=== PATIENT | female | born 1950 | race African-American/Black ===

== ENCOUNTER 2019-05-02 15:54 | Emergency (ER) | payer MEDICARE, OTHER ==
[~2019-05-02] VITALS: Ht 157.5 cm; Wt 73.9 kg
--- NOTE | 2019-05-02 16:00 | NUR ---
ED Nurse Note: Patient brought in by ambulance from [facility] from home, patiet reports generalized weakness and feeling lethargic 1 hour prior to arrival. patient is alert awake x4 ambulatory steady gait, without assistance, breathing unlabored and even, speaking in full sentences.
[2019-05-02] MEDS ORDERED: HUMALOG100 UNIT/4 SUBQ (16:03)
[2019-05-02] MEDS ORDERED: GLIPIZIDE ER5 MG PO (16:03)
[2019-05-02] MEDS ORDERED: POTASSIUM CHLOR8 ME2 PO (16:03)
[2019-05-02] MEDS ORDERED: CARVEDILOL3.125 MG ORAL (16:03)
[2019-05-02] MEDS ORDERED: LANTUS SOL100 UNIT/1 SUBQ (16:03)
[2019-05-02] MEDS ORDERED: ATORVASTATIN CA40 MG ORAL (16:03)
--- NOTE | 2019-05-02 16:10 | NUR ---
ED Nurse Note: socks provided for the patient as requested. patient is a/o x4 ambulatory from home, patient reports "I cannot put my socks on." RN put socks on for the patient.
--- NOTE | 2019-05-02 16:12 | Emergency Room Report ---
History of Present Illness General Chief Complaint: Generalized Weakness Source: Patient, EMS Present Illness HPI 68-year-old female history of CABG 2016, hypertension, hyperlipidemia presents with presyncopal-like symptoms, and felt lightheaded when she stood up suddenly lasting 5 minutes, alleviated when she was lying down patient denies any chest pain shortness of breath no nausea no vomiting, no abdominal pain no dysuria patient presents for evaluation. Allergies: Coded Allergies: No Known Allergies (Unverified , 05/02/19) Patient History Past Medical History: see triage record Reviewed Nursing Documentation: PMH: Agreed; PSxH: Agreed Nursing Documentation-PMH Hx Cardiac Problems: Yes Hx Hypertension: Yes - HYPERLIPIDEMIA Hx Diabetes: Yes Review of Systems All Other Systems: negative except mentioned in HPI Physical Exam Vital Signs Date Time Temp Pulse Resp B/P (MAP) Pulse Ox O2 Delivery O2 Flow Rate FiO2 05/02/19 15:50 99.0 80 19 152/78 (102) 100 Room Air Sp02 EP Interpretation: reviewed, normal General Appearance: well appearing, no apparent distress, alert Head: normocephalic, atraumatic Eyes: bilateral eye PERRL, bilateral eye EOMI ENT: uvula midline, moist mucus membranes Neck: supple, thyroid normal, supple/symm/no masses Respiratory: lungs clear, no respiratory distress, no retraction, no accessory muscle use Cardiovascular #1: normal peripheral pulses, regular rate, rhythm, no edema, no gallop, no murmur Gastrointestinal: non tender, soft, no guarding, no rebound Musculoskeletal: normal inspection Neurologic: alert, oriented x3 Psychiatric: mood/affect normal Skin: no rash, warm/dry Medical Decision Making Diagnostic Impression: Primary Impression: Episode of generalized weakness Additional Impression: UTI (urinary tract infection) Qualified Codes: N30.00 - Acute cystitis without hematuria ER Course 68-year-old female multiple comorbidities presents with presyncopal-like symptoms, controlled diagnosis includes ACS, syncope, UTI Patient felt better with fluid ministration, patient instantly found to have a UTI, patient felt better with antibiotic administration Disposition home with return precautions, counseled patient to follow-up with rheumatology and cardiology Will provide patient with a prescription abx Laboratory Tests Test 05/02/19 16:10 05/02/19 16:19 White Blood Count 7.0 K/UL (4.8-10.8) Red Blood Count 3.72 M/UL (4.20-5.40) L Hemoglobin 11.8 G/DL (12.0-16.0) L Hematocrit 34.3 % (37.0-47.0) L Mean Corpuscular Volume 92 FL (80-99) Mean Corpuscular Hemoglobin 31.8 PG (27.0-31.0) H Mean Corpuscular Hemoglobin Concent 34.5 G/DL (32.0-36.0) Red Cell Distribution Width 10.4 % (11.6-14.8) L Platelet Count 211 K/UL (150-450) Mean Platelet Volume 8.6 FL (6.5-10.1) Neutrophils (%) (Auto) 66.0 % (45.0-75.0) Lymphocytes (%) (Auto) 22.3 % (20.0-45.0) Monocytes (%) (Auto) 8.1 % (1.0-10.0) Eosinophils (%) (Auto) 2.5 % (0.0-3.0) Basophils (%) (Auto) 1.1 % (0.0-2.0) Erythrocyte Sedimentation Rate 105 MM/HR (0-30) H Prothrombin Time 10.4 SEC (9.30-11.50) Prothrombin Time INR 1.0 (0.9-1.1) PTT 30 SEC (23-33) Sodium Level 141 MMOL/L (136-145) Potassium Level 3.9 MMOL/L (3.5-5.1) Chloride Level 104 MMOL/L (98-107) Carbon Dioxide Level 30 MMOL/L (21-32) Anion Gap 7 mmol/L (5-15) Blood Urea Nitrogen 34 mg/dL (7-18) H Creatinine 1.6 MG/DL (0.55-1.30) H Estimate Glomerular Filtration Rate 31.8 mL/min (>60) Glucose Level 287 MG/DL (74-106) H Calcium Level 9.7 MG/DL (8.5-10.1) Total Bilirubin 0.4 MG/DL (0.2-1.0) Aspartate Amino Transferase (AST) 16 U/L (15-37) Alanine Aminotransferase (ALT) 34 U/L (12-78) Alkaline Phosphatase 117 U/L (46-116) H Total Creatine Kinase 93 U/L (26-308) Creatine Kinase MB 0.8 NG/ML (0.0-3.6) Creatine Kinase MB Relative Index 0.8 Troponin I 0.000 ng/mL (0.000-0.056) C-Reactive Protein, Quantitative 2.5 mg/dL (0.00-0.90) H Pro-B-Type Natriuretic Peptide 532 pg/mL (0-125) H Total Protein 7.7 G/DL (6.4-8.2) Albumin 3.2 G/DL (3.4-5.0) L Globulin 4.5 g/dL Albumin/Globulin Ratio 0.7 (1.0-2.7) L Triglycerides Level 166 MG/DL (30-150) H Cholesterol Level 199 MG/DL (< 200) LDL Cholesterol 127 mg/dL (<100) H HDL Cholesterol 43 MG/DL (40-60) Cholesterol/HDL Ratio 4.6 (3.3-4.4) H Thyroid Stimulating Hormone (TSH) 0.942 uiU/mL (0.358-3.740) Free Thyroxine 0.92 NG/DL (0.76-1.46) Free Triiodothyronine 1.6 pg/mL (2.3-4.2) L Urine Color Pale yellow Urine Appearance Slightly cloudy Urine pH 5 (4.5-8.0) Urine Specific [place] 1.020 (1.005-1.035) Urine Protein 3+ (NEGATIVE) H Urine Glucose (UA) Negative (NEGATIVE) Urine Ketones Negative (NEGATIVE) Urine Blood 1+ (NEGATIVE) H Urine Nitrite Negative (NEGATIVE) Urine Bilirubin Negative (NEGATIVE) Urine Urobilinogen Normal MG/DL (0.0-1.0) Urine Leukocyte Esterase 2+ (NEGATIVE) H Urine RBC 5-10 /HPF (0 - 2) H Urine WBC Tntc /HPF (0 - 2) H Urine Squamous Epithelial Cells Moderate /LPF (NONE/OCC) H Urine Bacteria Many /HPF (NONE) H EKG Diagnostic Results EKG Time: 16:26 EP Interpretation: Paced rhythm, rate 68, QTc 463, no acute ST elevations, left axis deviation Rhythm Strip Diag. Results Rhythm Strip Time: 16:36 EP Interpretation: yes Rate: 67 Rhythm: other - Paced rhythm Chest X-Ray Diagnostic Results Chest X-Ray Diagnostic Results : Chest X-Ray Ordered: Yes # of Views/Limited/Complete: 1 View Indication: Other - presyncope EP Interpretation: Yes Interpretation: no consolidation, no effusion, no pneumothorax, no acute cardiopulmonary disease Impression: No acute disease Electronically Signed by: Ramon Fernandez MD Last Vital Signs Date Time Temp Pulse Resp B/P (MAP) Pulse Ox O2 Delivery O2 Flow Rate FiO2 05/02/19 15:50 99.0 80 19 152/78 (102) 100 Room Air Disposition: HOME, SELF-CARE Condition: Stable Scripts Cephalexin* (CEPHALEXIN*) 500 Mg Tablet 500 MG ORAL EVERY 6 HOURS, #28 CAP Prov: Ramon Fernandez MD 05/02/[address]: [facility] Patient Instructions: Near-Syncope, [id number], Urinary Tract Infection, Easy -to-Read Additional Instructions: The patient was provided with discharge instructions, notified to follow-up with a primary care doctor and or specialist in the next 24-48 hours, and to return to the ED if they have worsening of their symptoms. Please note that this report is being documented using [employer] technology. This can lead to erroneous entry secondary to incorrect interpretation by the dictating instrument. PLEASE FOLLOW-UP WITH RHEUMATOLOGY, AND PCP IN 24-48 HOURS. Ramon Fernandez MD May 02, 2019 16:12
[2019-05-02 16:34] LABS: APPEARANCE,URINE SLIGHTLY CLOUDY; BILIRUBIN, URINE NEGATIVE (NEGATIVE); COLOR,URINE PALE YELLOW; GLUCOSE, URINE (UA) NEGATIVE (NEGATIVE); KETONES,URINE NEGATIVE (NEGATIVE); LEUKOCYTE ESTERASE ,URINE 2+ (NEGATIVE); NITRITE,URINE NEGATIVE (NEGATIVE); PH,URINE 5 (4.5-8.0); PROTEIN,URINE 3+ (NEGATIVE); UROBILINOGEN,URINE NORMAL MG/DL (0.0-1.0)
[2019-05-02 16:48] LABS: BASOPHILS % (AUTO) 1.1 % (0.0-2.0); EOSINOPHILS % (AUTO) 2.5 % (0.0-3.0); HEMATOCRIT 34.3 % (37.0-47.0); HEMOGLOBIN 11.8 G/DL (12.0-16.0); LYMPHOCYTES % (AUTO) 22.3 % (20.0-45.0); MEAN CORPUSCULAR VOLUME 92 FL (80-99); MONOCYTES % (AUTO) 8.1 % (1.0-10.0); PLATELET COUNT 211 K/UL (150-450); RED BLOOD COUNT 3.72 M/UL (4.20-5.40); RED CELL DISTRIBUTION WIDTH 10.4 % (11.6-14.8)
[2019-05-02 16:59] LABS: ANION GAP 7 mmol/L (5-15); BLOOD UREA NITROGEN 34 mg/dL (7-18); CALCIUM 9.7 MG/DL (8.5-10.1); CARBON DIOXIDE 30 MMOL/L (21-32); CHLORIDE 104 MMOL/L (98-107); CREATININE 1.6 MG/DL (0.55-1.30); POTASSIUM 3.9 MMOL/L (3.5-5.1); SODIUM 141 MMOL/L (136-145)
--- NOTE | 2019-05-02 17:08 | Diagnostic Imaging Report ---
EXAM: XR Chest, 1 View CLINICAL HISTORY: WEAK TECHNIQUE: Frontal view of the chest. COMPARISON: No relevant prior studies available. FINDINGS: Lungs: Mild interstitial opacities in both lungs with central distribution. Lungs are underinflated. Pleural space: Unremarkable. No pneumothorax. Heart: Suspect mild cardiomegaly. Mediastinum: Unremarkable. Bones joints: Unremarkable. Vasculature: Calcified aorta. Tubes, lines and devices: Sternal wires, mediastinal clips and left pacer are noted. IMPRESSION: Lung findings are likely due to underinflation and less likely mild pulmonary edema.
[2019-05-02 17:12] VITALS: BP 156/52
[2019-05-02 17:13] LABS: ALANINE AMINOTRANSFERASE 34 U/L (12-78); ALBUMIN 3.2 G/DL (3.4-5.0); ALBUMIN/GLOBULIN RATIO 0.7 (1.0-2.7); ALKALINE PHOSPHATASE 117 U/L (46-116); ASPARTATE AMINO TRANSFERASE 16 U/L (15-37); BILIRUBIN,TOTAL 0.4 MG/DL (0.2-1.0); CHOLESTEROL 199 MG/DL (< 200); CKMB 0.8 NG/ML (0.0-3.6); CREATINE KINASE 93 U/L (26-308); HDL CHOLESTEROL 43 MG/DL (40-60); TRIGLYCERIDES 166 MG/DL (30-150)
[2019-05-02] MEDS ORDERED: cefTRIAXone 1 GM in NS 55 ML IVPB ONE (17:30)
[2019-05-02] MEDS ORDERED: CEPHALEXIN500 M1 ORAL (18:07)
[2019-05-02 18:10] VITALS: BP 136/62
--- NOTE | 2019-05-02 18:19 | NUR ---
ED Nurse Note: patient states "I need all of these lead stickers to come off of me. I'm not going to sign any paper until you do so. Do your job right. Are you crazy?" RN took off all the stickers out of her body. patient's IV site removed without complication, no bleeding noted.
[2019-05-02 18:21] VITALS: BP 156/52
--- NOTE | 2019-05-02 18:21 | NUR ---
ER DISCHARGE NOTE: Patient is cleared to be discharged per ERMD DR ALCALA, pt is aox4, on room air, with stable vital signs. pt was given dc and prescription instructions, pt was able to verbalize understanding, pt id band and iv site removed without complications. pt is able to ambulate with steady gait. pt took all belongings.
--- NOTE | 2019-05-02 18:25 | NUR ---
ED Nurse Note: as patient is being discharged, patient asked "why am I not getting insulin shot here? I did not get one today" Charge nurse explained to her that she is here treated for UTI and being discharged home, patient can give her insulin dose as ordered by her PMD at home.
== END 2019-05-02 18:21 | disposition home or self-care (01) ==
LOC: EDBD 15:54 → EMR 16:19
DX: N30.00 Acute cystitis without hematuria (principal); R53.1 Weakness; E11.9 Type 2 diabetes mellitus without complications; I10 Essential (primary) hypertension; E78.5 Hyperlipidemia, unspecified; Z95.1 Presence of aortocoronary bypass graft
CPT/HCPCS: 36415; 71045; 80053; 80061; 81003; 82550; 82553; 83880; 84439; 84443; 84481; 84484; 85025; 85610; 85651; 85730; 86140; 87086; 87181; 93005; 96361; 96365; 99284; J0696; J7030